=== PATIENT | male | born 1960 | race African-American/Black ===

== ENCOUNTER 2018-03-04 00:12 | Observation (INO) ==
[2018-03-04] MEDS ORDERED: ZALEPLON 5 MG CAPSULE PO PRN (02:01)
[2018-03-04] MEDS ORDERED: traMADol 50 MG TABLET PO PRN (02:41)
[2018-03-04] MEDS ORDERED: GLUCAGON 1 MG VIAL IM PRN (02:47)
[2018-03-04] MEDS ORDERED: DEXTROSE 50% 25 GM/50 ML VIAL IV PRN (02:47)
[2018-03-04 03:17] LABS: Albumin 3.7 G/DL (3.4-5.0); Bilirubin,Total 0.6 MG/DL (0.2-1.0); Calcium 9.7 MG/DL (8.5-10.1); Osmolality,Calculated 283.7 MOS/KG (273-304); Potassium 4.1 MMOL/L (3.5-5.1); Risk Ratio 4.54; Total Protein 7.4 G/DL (6.4-8.3); VLDL CHOLESTEROL 55.8 MG/DL
[2018-03-04] MEDS ORDERED: LOSARTAN/HCTZ 50-12.5 MG TABLET PO SCH (09:00)
[2018-03-04] MEDS ORDERED: ASPIRIN EC 325 MG TABLET PO SCH (09:00)
[2018-03-04] MEDS ORDERED: hydroCHLOROthiazide 12.5 MG CAPSULE PO SCH (09:00)
[2018-03-04] MEDS ORDERED: CARVEDILOL 12.5 MG TABLET PO SCH (09:00)
[2018-03-04] MEDS ORDERED: PANTOPRAZOLE 40 MG TABLET PO SCH (09:00)
[2018-03-04] MEDS ORDERED: LORATADINE 10 MG TABLET PO SCH (09:00)
[2018-03-04] MEDS: INSULIN REGULAR 100 UNIT/ML SUBCUT SCH ×2 (09:21→14:04)
[2018-03-04] MEDS ORDERED: DIAZEPAM 5 MG TABLET PO ONE (09:53)
[2018-03-04] MEDS ORDERED: POTASSIUM CHLORIDE RIDER 10 MEQ in PREMIX 1 EACH IV PRN (09:53)
[2018-03-04] MEDS ORDERED: MAGNESIUM SULF RIDER 2 GM in PREMIX 1 EACH IV PRN (09:53)
[2018-03-04] MEDS ORDERED: diphenhydrAMINE CAP 25 MG CAPSULE PO ONE (09:53)
[2018-03-04] MEDS ORDERED: SODIUM CHLORIDE 0.9% 1,000 ML IV SCH (10:00)
[2018-03-04 10:54] LABS: INR 0.9
[2018-03-04] MEDS ORDERED: LIDOCAINE 1%/EPI INJ 20 ML VIAL ONE (13:19)
[2018-03-04] MEDS ORDERED: fentaNYL 100 MCG/2 ML VIAL ONE (13:20)
[2018-03-04] MEDS ORDERED: MIDAZOLAM 2 MG/2 ML VIAL ONE (13:20)
[2018-03-04 17:43] VITALS: BP 114/81
[2018-03-04] MEDS ORDERED: ATORVASTATIN 40 MG TABLET PO SCH (21:00)
[2018-03-04] MEDS ORDERED: AMITRIPTYLINE 50 MG TABLET PO SCH (21:00)
[2018-03-04] MEDS ORDERED: traZODone 50 MG TABLET PO SCH (21:00)
== END 2018-03-04 19:05 | disposition home or self-care (01) ==
LOC: N.TELES → SUATTDRO 01:32
PROVIDERS: ADMIT Internal Medicine; ATTEND Internal Medicine
PROC: CLCCHCL (ICD-10-PCS; 2018-03-04 13:45)

== ENCOUNTER 2020-02-13 11:11 | Observation (INO) ==
[2020-02-13] MEDS ORDERED: MAGNESIUM SULF RIDER 2 GM in PREMIX 1 EACH IV PRN (12:08)
[2020-02-13] MEDS ORDERED: POTASSIUM CHLORIDE 20 MEQ TABLET PO PRN (12:08)
[2020-02-13] MEDS ORDERED: ZALEPLON 5 MG CAPSULE PO PRN (12:08)
[2020-02-13] MEDS ORDERED: MORPHINE 4 MG/1 ML VIAL IV PRN (12:08)
[2020-02-13] MEDS ORDERED: MAGNESIUM SULF RIDER 4 GM in PREMIX 1 EACH IV PRN (12:08)
[2020-02-13] MEDS ORDERED: ACETAMINOPHEN 325 MG TABLET PO PRN (12:08)
[2020-02-13] MEDS ORDERED: ONDANSETRON 4 MG/2 ML VIAL IV PRN (12:08)
[2020-02-13] MEDS ORDERED: GLUCAGON 1 MG VIAL IM PRN (12:16)
[2020-02-13] MEDS ORDERED: DEXTROSE 10% 250 ML BAG IV PRN (12:16)
[2020-02-13] MEDS ORDERED: NITROGLYCERIN SL 0.4 MG TABLET SL PRN (13:42)
[2020-02-13] MEDS ORDERED: ENOXAPARIN 120 MG/0.8 ML SYRINGE SUBCUT ONE (14:08)
[2020-02-13] MEDS ORDERED: ERGOCALCIFEROL 50,000 UNIT CAPSULE PO SCH (14:30)
[2020-02-13] MEDS: GABAPENTIN 300 MG CAPSULE PO SCH ×2 (14:47→21:42)
[2020-02-13] MEDS: ACETAMINOPHEN 325 MG TABLET PO SCH ×2 (14:47→21:43)
[2020-02-13] MEDS ORDERED: INSULIN REGULAR 100 UNIT/ML SUBCUT SCH (16:30)
[2020-02-13] MEDS: FUROSEMIDE 80 MG TABLET PO SCH (16:57)
[2020-02-13] MEDS ORDERED: INSULIN GLARGINE U U SUBCUT SCH (19:00)
[2020-02-13] MEDS ORDERED: ATORVASTATIN 40 MG TABLET PO SCH (21:00)
[2020-02-13] MEDS ORDERED: traZODone 50 MG TABLET PO SCH (21:00)
[2020-02-13] MEDS ORDERED: LORATADINE 10 MG TABLET PO SCH (21:00)
[2020-02-13] MEDS ORDERED: INSULIN GLARGINE 100 UNIT/ML SUBCUT SCH (21:00)
[2020-02-13] MEDS: TOPIRAMATE 25 MG TABLET PO SCH (21:43)
[2020-02-13] MEDS: carvediloL 25 MG TABLET PO SCH (21:44)
[2020-02-13] MEDS: hydrALAZINE 25 MG TABLET PO SCH (21:44)
[2020-02-13] MEDS: SACUBITRIL/VALSARTAN 49-51 MG TABLET PO SCH (21:44)
[2020-02-13] MEDS: LACOSAMIDE 50 MG TABLET PO SCH (21:45)
[2020-02-13 22:40] LABS: Apearance,Urine CLEAR (Clear); Bilirubin,Urine Negative (Negative); Blood, Urine Small mg/dL (Negative); Glucose,Urine (UA) Negative (Negative); Ketones,Urine Negative (Negative); Mucus,Urine Occasional /LPF (Occasional); Nitrite,Urine Negative (Negative); Protein,Urine Negative; RBC,Urine 1 /HPF (0-4); Squamous Epithelial Cell,Urine Occasional /HPF (0-10); Urine Color Straw (Yellow); Urine Specific Gravity 1.006 (1.001-1.035); Urine Urobilinogen < 2.0 EU/DL (0.2-1.0)
[2020-02-14 06:12] LABS: Eosinophils % 0.5 % (0.00-10.9); Hematocrit 38.4 VOL% (42.0-52.0); Hemoglobin 12.4 GM/DL (14.0-18.0); Immature Granulocytes % 0.5 %; Immature Granulocytes Absolute 0.02 #; Lymphocytes # 1.3 10*3/uL (1.4-4.0); Lymphocytes % 33.3 % (21.2-54.2); Mean Corpuscular HGB Conc 32.3 GM/DL (32-36); Mean Corpuscular Volume 82.2 FL (87-102); Mean Platelet Volume 9.9 FL (9.6-12.0); Monocytes % 10.7 % (1.7-12.7); Platelet Count 130 T/CUMM (130-400); Red Blood Count 4.67 MC/CUMM (3.8-5.5); Red Cell Distribution Width 14.6 % (9.3-17.3)
[2020-02-14 06:40] LABS: Calcium 9.3 MG/DL (8.5-10.1); Osmolality,Calculated 289.1 MOS/KG (273-304)
[2020-02-14 06:45] LABS: Risk Ratio 2.96; VLDL CHOLESTEROL 44.4 MG/DL
[2020-02-14] MEDS ORDERED: INSULIN LISPRO 100 UNIT/ML SUBCUT SCH (07:30)
[2020-02-14 07:41] VITALS: BP 155/77
[2020-02-14 08:21] LABS: Troponin I 0.019 NG/ML (0.00-0.045)
[2020-02-14] MEDS ORDERED: PANTOPRAZOLE 40 MG TABLET PO SCH (09:00)
[2020-02-14] MEDS ORDERED: FERROUS SULFATE 325 MG TABLET PO SCH (09:00)
[2020-02-14] MEDS ORDERED: EZETIMIBE 10 MG TABLET PO SCH (09:00)
[2020-02-14] MEDS ORDERED: ASPIRIN EC 81 MG TABLET PO SCH (09:00)
[2020-02-14] MEDS: LACOSAMIDE 50 MG TABLET PO SCH (09:43)
[2020-02-14] MEDS: carvediloL 25 MG TABLET PO SCH (09:43)
[2020-02-14] MEDS: ACETAMINOPHEN 325 MG TABLET PO SCH (09:43)
[2020-02-14] MEDS: FUROSEMIDE 80 MG TABLET PO SCH (09:43)
[2020-02-14] MEDS: GABAPENTIN 300 MG CAPSULE PO SCH (09:43)
[2020-02-14] MEDS: TOPIRAMATE 25 MG TABLET PO SCH (09:43)
[2020-02-14] MEDS: hydrALAZINE 25 MG TABLET PO SCH (09:43)
[2020-02-14] MEDS: SACUBITRIL/VALSARTAN 49-51 MG TABLET PO SCH (09:43)
[2020-02-20] MEDS ORDERED: NON-FORMULARY MEDICATION (Dulaglutide [Trulicity] 1.5 MG) SUBCUT SCH (09:00)
== END 2020-02-14 12:20 | disposition home or self-care (01) ==
LOC: N.TELES 13:02 → INTOOBSV 13:02
PROVIDERS: ADMIT Internal Medicine Cardiovascular Disease; ATTEND Internal Medicine Cardiovascular Disease

== ENCOUNTER 2020-12-26 14:50 | Inpatient (IN) ==
[2020-12-26 15:29] LABS: Basophils % 0.2 % (0.0-0.8); Eosinophils # 0.1 10*3/uL (0.0-0.87); Eosinophils % 1.1 % (0.00-10.9); Hematocrit 35.7 VOL% (42.0-52.0); Hemoglobin 11.5 GM/DL (14.0-18.0); Immature Granulocytes % 0.5 %; Immature Granulocytes Absolute 0.04 #; Lymphocytes % 11.8 % (21.2-54.2); Mean Corpuscular HGB Conc 32.2 GM/DL (32-36); Mean Corpuscular Volume 85.6 FL (87-102); Mean Platelet Volume 10.6 FL (9.6-12.0); Monocytes % 8.8 % (1.7-12.7); Neutrophils % 77.6 % (38.7-73.9); Platelet Count 165 T/CUMM (130-400); Red Blood Count 4.17 MC/CUMM (3.8-5.5); Red Cell Distribution Width 14.1 % (9.3-17.3); White Blood Count 8.3 T/CUMM (4-12)
[2020-12-26 15:50] LABS: Albumin 3.7 G/DL (3.4-5.0); Calcium 9.4 MG/DL (8.5-10.1); Osmolality,Calculated 295.4 MOS/KG (273-304); Potassium 4.5 MMOL/L (3.5-5.1); Total Protein 8.4 G/DL (5.0-7.5)
[2020-12-26 15:53] LABS: PT Patient Result 11.2 SECS (9.8-11.9)
[2020-12-26 16:47] LABS: Partial Thromboplastin Time 121.3 SECS (23.9-33.8)
[2020-12-26] MEDS ORDERED: DEXTROSE 50% 25 GM/50 ML VIAL IV PRN (17:41)
[2020-12-26] MEDS ORDERED: ONDANSETRON 4 MG/2 ML VIAL IV PRN (17:41)
[2020-12-26] MEDS ORDERED: GLUCAGON 1 MG VIAL IM PRN (17:41)
[2020-12-26] MEDS: INSULIN LISPRO 100 UNIT/ML SUBCUT SCH (21:13)
[2020-12-27 05:42] LABS: Basophils % 0.1 % (0.0-0.8); Eosinophils % 0.1 % (0.00-10.9); Hematocrit 33.5 VOL% (42.0-52.0); Hemoglobin 10.9 GM/DL (14.0-18.0); Immature Granulocytes % 0.7 %; Immature Granulocytes Absolute 0.07 #; Lymphocytes # 0.9 10*3/uL (1.4-4.0); Lymphocytes % 9.5 % (21.2-54.2); Mean Corpuscular HGB Conc 32.5 GM/DL (32-36); Mean Corpuscular Volume 84.4 FL (87-102); Mean Platelet Volume 10.5 FL (9.6-12.0); Monocytes % 7.7 % (1.7-12.7); Neutrophils % 81.9 % (38.7-73.9); Platelet Count 178 T/CUMM (130-400); Red Blood Count 3.97 MC/CUMM (3.8-5.5); Red Cell Distribution Width 14.6 % (9.3-17.3); White Blood Count 9.6 T/CUMM (4-12)
[2020-12-27 06:08] LABS: Band Neutrophils 6 % (0-10); Hypochromasia 1+; Lymphocytes 6 % (20-55); Segmented Neutrophils 79 % (50-85); Total Cells Counted 100
[2020-12-27 06:09] LABS: Microcytosis 1+; Platelet Estimate Adequate
[2020-12-27 06:12] LABS: Albumin 3.2 G/DL (3.4-5.0); Bilirubin,Direct 2.82 MG/DL (0.0-0.20); Bilirubin,Indirect 1.6 MG/DL (0.0-1.0); Bilirubin,Total 4.4 MG/DL (0.2-1.0); Osmolality,Calculated 294.8 MOS/KG (273-304); Total Protein 7.7 G/DL (5.0-7.5)
[2020-12-27] MEDS: INSULIN LISPRO 100 UNIT/ML SUBCUT SCH ×3 (09:47→16:15)
[2020-12-27] MEDS: ACETAMINOPHEN 650 MG SUPP RECTAL PRN (16:19)
[2020-12-28] MEDS: INSULIN LISPRO 100 UNIT/ML SUBCUT SCH ×5 (02:44→22:24)
[2020-12-28] MEDS: POLYETHYLENE GLYCOL POWDER 17 GM PACK PO SCH (08:01)
[2020-12-28 10:22] LABS: Hepatitis B Core IgM Quant < 0.05 Index; Hepatitis B Surface Ag Quant < 0.10 Index; Hepatitis B Surface Ag Result Non-Reactive (NonReactive); Hepatitis C Virus Ab Quant 0.08 Index; Hepatitis C Virus Ab Result Non-Reactive (NonReactive)
[2020-12-28] MEDS: LEVOFLOXACIN INJ 500 MG in PREMIX 1 EACH IV SCH (16:05)
[2020-12-28] MEDS ORDERED: HEPARIN 10,000 UNIT/10 ML VIAL IV SCH (16:30)
[2020-12-29 03:31] LABS: Basophils % 0.2 % (0.0-0.8); Eosinophils # 0.1 10*3/uL (0.0-0.87); Eosinophils % 0.7 % (0.00-10.9); Hemoglobin 9.8 GM/DL (14.0-18.0); Immature Granulocytes % 0.9 %; Immature Granulocytes Absolute 0.09 #; Lymphocytes # 0.9 10*3/uL (1.4-4.0); Lymphocytes % 9.2 % (21.2-54.2); Mean Corpuscular HGB Conc 32.7 GM/DL (32-36); Mean Corpuscular Volume 83.1 FL (87-102); Mean Platelet Volume 9.8 FL (9.6-12.0); Monocytes % 9.9 % (1.7-12.7); Neutrophils % 79.1 % (38.7-73.9); Platelet Count 165 T/CUMM (130-400); Red Blood Count 3.61 MC/CUMM (3.8-5.5); Red Cell Distribution Width 14.6 % (9.3-17.3); White Blood Count 9.5 T/CUMM (4-12)
[2020-12-29 03:59] LABS: Albumin 2.6 G/DL (3.4-5.0); Bilirubin,Total 1.8 MG/DL (0.2-1.0); Calcium 9.4 MG/DL (8.5-10.1); Osmolality,Calculated 290.2 MOS/KG (273-304); Potassium 4.4 MMOL/L (3.5-5.1); Total Protein 7.3 G/DL (5.0-7.5)
[2020-12-29 04:13] LABS: Eosinophils 1 % (0-10); Lymphocytes 8 % (20-55); Platelet Estimate Adequate; Segmented Neutrophils 83 % (50-85); Total Cells Counted 100
[2020-12-29 04:14] LABS: Hypochromasia 1+; Microcytosis 1+
[2020-12-29] MEDS: INSULIN LISPRO 100 UNIT/ML SUBCUT SCH ×4 (09:48→21:43)
[2020-12-29] MEDS: POLYETHYLENE GLYCOL POWDER 17 GM PACK PO SCH (09:49)
[2020-12-29] MEDS ORDERED: traMADol 50 MG TABLET PO PRN (10:27)
[2020-12-29] MEDS: ACETAMINOPHEN 650 MG SUPP RECTAL PRN (13:26)
[2020-12-30 05:47] LABS: Basophils % 0.2 % (0.0-0.8); Eosinophils # 0.1 10*3/uL (0.0-0.87); Eosinophils % 0.9 % (0.00-10.9); Hematocrit 31.4 VOL% (42.0-52.0); Hemoglobin 10.1 GM/DL (14.0-18.0); Immature Granulocytes % 0.6 %; Immature Granulocytes Absolute 0.05 #; Lymphocytes % 10.9 % (21.2-54.2); Mean Corpuscular HGB Conc 32.2 GM/DL (32-36); Mean Corpuscular Volume 84.2 FL (87-102); Mean Platelet Volume 9.9 FL (9.6-12.0); Monocytes % 12.3 % (1.7-12.7); Neutrophils % 75.1 % (38.7-73.9); Platelet Count 176 T/CUMM (130-400); Red Blood Count 3.73 MC/CUMM (3.8-5.5); Red Cell Distribution Width 14.7 % (9.3-17.3)
[2020-12-30 06:09] LABS: Albumin 2.6 G/DL (3.4-5.0); Bilirubin,Total 1.6 MG/DL (0.2-1.0); Calcium 9.2 MG/DL (8.5-10.1); Osmolality,Calculated 285.2 MOS/KG (273-304); Potassium 4.3 MMOL/L (3.5-5.1); Total Protein 7.9 G/DL (5.0-7.5)
[2020-12-30 06:13] LABS: Lymphocytes 11 % (20-55); Segmented Neutrophils 80 % (50-85); Total Cells Counted 100
[2020-12-30 06:14] LABS: Hypochromasia 2+; Platelet Estimate Normal
[2020-12-30] MEDS: INSULIN LISPRO 100 UNIT/ML SUBCUT SCH ×4 (07:18→23:06)
[2020-12-30] MEDS: POLYETHYLENE GLYCOL POWDER 17 GM PACK PO SCH (09:14)
[2020-12-30] MEDS: LEVOFLOXACIN INJ 500 MG in PREMIX 1 EACH IV SCH (14:08)
[2020-12-31 03:45] LABS: Basophils % 0.3 % (0.0-0.8); Eosinophils # 0.1 10*3/uL (0.0-0.87); Eosinophils % 0.9 % (0.00-10.9); Hematocrit 30.8 VOL% (42.0-52.0); Hemoglobin 10.2 GM/DL (14.0-18.0); Immature Granulocytes % 0.6 %; Immature Granulocytes Absolute 0.06 #; Lymphocytes % 9.7 % (21.2-54.2); Mean Corpuscular HGB Conc 33.1 GM/DL (32-36); Mean Corpuscular Volume 82.8 FL (87-102); Mean Platelet Volume 9.8 FL (9.6-12.0); Monocytes % 12.7 % (1.7-12.7); Neutrophils % 75.8 % (38.7-73.9); Platelet Count 181 T/CUMM (130-400); Red Blood Count 3.72 MC/CUMM (3.8-5.5); Red Cell Distribution Width 14.9 % (9.3-17.3); White Blood Count 10.4 T/CUMM (4-12)
[2020-12-31 04:17] LABS: Albumin 2.5 G/DL (3.4-5.0); Bilirubin,Total 1.3 MG/DL (0.2-1.0); Calcium 9.9 MG/DL (8.5-10.1); Osmolality,Calculated 292.4 MOS/KG (273-304); Potassium 4.4 MMOL/L (3.5-5.1); Total Protein 8.2 G/DL (5.0-7.5)
[2020-12-31] MEDS: INSULIN LISPRO 100 UNIT/ML SUBCUT SCH ×4 (08:12→21:39)
[2020-12-31] MEDS: CHOLECALCIFEROL 400 UNIT TABLET PO SCH (08:59)
[2020-12-31] MEDS: POLYETHYLENE GLYCOL POWDER 17 GM PACK PO SCH (08:59)
[2020-12-31] MEDS: DIVALPROEX 500 MG TABLET PO SCH (21:34)
[2021-01-01 06:24] LABS: Basophils % 0.3 % (0.0-0.8); Eosinophils # 0.1 10*3/uL (0.0-0.87); Eosinophils % 1.3 % (0.00-10.9); Hematocrit 30.6 VOL% (42.0-52.0); Hemoglobin 10.1 GM/DL (14.0-18.0); Immature Granulocytes % 1.1 %; Immature Granulocytes Absolute 0.11 #; Lymphocytes % 10.7 % (21.2-54.2); Mean Corpuscular Volume 83.2 FL (87-102); Mean Platelet Volume 9.8 FL (9.6-12.0); Monocytes % 13.1 % (1.7-12.7); Neutrophils % 73.5 % (38.7-73.9); Platelet Count 201 T/CUMM (130-400); Red Blood Count 3.68 MC/CUMM (3.8-5.5); Red Cell Distribution Width 15.3 % (9.3-17.3); White Blood Count 9.6 T/CUMM (4-12)
[2021-01-01 06:50] LABS: Albumin 2.5 G/DL (3.4-5.0); Bilirubin,Total 0.8 MG/DL (0.2-1.0); Calcium 9.7 MG/DL (8.5-10.1); Osmolality,Calculated 305.1 MOS/KG (273-304); Total Protein 8.3 G/DL (6.4-8.2)
[2021-01-01] MEDS: INSULIN LISPRO 100 UNIT/ML SUBCUT SCH ×4 (08:13→20:00)
[2021-01-01] MEDS: CHOLECALCIFEROL 400 UNIT TABLET PO SCH (09:04)
[2021-01-01] MEDS: DIVALPROEX 500 MG TABLET PO SCH ×2 (09:04→20:47)
[2021-01-01] MEDS: POLYETHYLENE GLYCOL POWDER 17 GM PACK PO SCH (09:04)
[2021-01-01] MEDS ORDERED: LEVOFLOXACIN 500 MG TABLET PO SCH (10:00)
[2021-01-01 20:04] VITALS: BP 97/64
== END 2021-01-01 21:00 | DRG 56 ==
LOC: EDUNIT# → EDBD → N.EDINP 14:50 → N.ED 14:50 → N.5E 18:12 → SUATTDRO 12-28 14:29
PROVIDERS: ADMIT Hospitalist; ATTEND Family Medicine

== ENCOUNTER 2021-10-13 14:17 | Observation (INO) ==
[2021-10-13 18:58] LABS: Albumin 3.9 G/DL (3.4-5.0); Bilirubin,Total 0.6 MG/DL (0.20-1.00); Calcium 9.1 MG/DL (8.5-10.1); Osmolality,Calculated 285.8 MOS/KG (273-304); Potassium 3.4 MMOL/L (3.5-5.1); Total Protein 8.6 G/DL (6.4-8.2)
[2021-10-13] MEDS ORDERED: HEPARIN LOCK FLUSH 500 UNIT/5 ML SYRINGE IV ONE (19:19)
[2021-10-13] MEDS ORDERED: MAGNESIUM SULF RIDER 2 GM/50 ML PREMIX IV PRN (19:31)
[2021-10-13] MEDS ORDERED: ONDANSETRON 4 MG/2 ML VIAL IV PRN (19:31)
[2021-10-13] MEDS ORDERED: MORPHINE 2 MG/1 ML SYRINGE IV PRN (19:31)
[2021-10-13] MEDS ORDERED: MAGNESIUM SULF RIDER 4 GM/100 ML PREMIX IV PRN (19:31)
[2021-10-13] MEDS ORDERED: ASPIRIN EC 325 MG TABLET PO SCH (19:33)
[2021-10-13 19:42] LABS: Basophils % 0.5 % (0.0-0.8); Eosinophils # 0.2 10*3/uL (0.0-0.87); Eosinophils % 2.3 % (0.00-10.9); Hematocrit 34.8 VOL% (42.0-52.0); Hemoglobin 11.7 GM/DL (14.0-18.0); Immature Granulocytes % 0.2 %; Immature Granulocytes Absolute 0.01 #; Lymphocytes # 2.2 10*3/uL (1.4-4.0); Lymphocytes % 32.7 % (21.2-54.2); Mean Corpuscular HGB Conc 33.6 GM/DL (32-36); Mean Corpuscular Volume 81.9 FL (87-102); Mean Platelet Volume 11.1 FL (9.6-12.0); Monocytes % 8.6 % (1.7-12.7); Neutrophils % 55.7 % (38.7-73.9); Platelet Count 116 T/CUMM (130-400); Red Blood Count 4.25 MC/CUMM (3.8-5.5); Red Cell Distribution Width 14.4 % (9.3-17.3); White Blood Count 6.6 T/CUMM (4-12)
[2021-10-13] MEDS ORDERED: ATORVASTATIN 20 MG TABLET PO SCH (21:00)
[2021-10-13] MEDS ORDERED: METOPROLOL TARTRATE 25 MG TABLET PO SCH (21:00)
[2021-10-13] MEDS ORDERED: ENOXAPARIN 120 MG/0.8 ML SYRINGE SUBCUT SCH (21:00)
[2021-10-13] MEDS: LACOSAMIDE 50 MG TABLET PO SCH (21:52)
[2021-10-13] MEDS: clonazePAM 0.5 MG TABLET PO SCH (21:53)
[2021-10-13] MEDS: GABAPENTIN 300 MG CAPSULE PO SCH (21:53)
[2021-10-14] MEDS ORDERED: carvediloL 12.5 MG TABLET PO SCH (09:00)
[2021-10-14] MEDS ORDERED: ASPIRIN EC 81 MG TABLET PO SCH (09:00)
[2021-10-14] MEDS ORDERED: PANTOPRAZOLE 40 MG TABLET PO SCH (09:00)
[2021-10-14] MEDS ORDERED: ASPIRIN CHEW 81 MG TABLET PO ONE (09:06)
[2021-10-14] MEDS: GABAPENTIN 300 MG CAPSULE PO SCH (09:15)
[2021-10-14] MEDS: clonazePAM 0.5 MG TABLET PO SCH (09:15)
[2021-10-14] MEDS: LACOSAMIDE 50 MG TABLET PO SCH (13:08)
[2021-10-14] MEDS ORDERED: POTASSIUM CHLORIDE 20 MEQ TABLET PO ONE (14:00)
[2021-10-14] MEDS ORDERED: MAGNESIUM SULF RIDER 2 GM/50 ML PREMIX IV ONE (14:00)
[2021-10-14 14:58] VITALS: BP 147/97
[2021-10-14] MEDS ORDERED: INSULIN GLARGINE 100 UNIT/ML SUBCUT SCH (21:00)
[2021-10-14] MEDS ORDERED: EZETIMIBE 10 MG TABLET PO SCH (21:00)
[2021-10-14] MEDS ORDERED: ATORVASTATIN 40 MG TABLET PO SCH (21:00)
== END 2021-10-14 14:33 | disposition home or self-care (01) ==
LOC: N.EDINP 14:17 → N.ED 14:17 → N.EDINP 10-14 14:45
PROVIDERS: ADMIT Internal Medicine Geriatric Medicine; ATTEND Internal Medicine Geriatric Medicine

== ENCOUNTER 2022-03-19 20:57 | Inpatient (IN) ==
[2022-03-19 21:16] LABS: Basophils % 0.3 % (0.0-0.8); Eosinophils # 0.2 10*3/uL (0.0-0.87); Hematocrit 30.3 VOL% (42.0-52.0); Hemoglobin 9.9 GM/DL (14.0-18.0); Immature Granulocytes % 0.3 %; Immature Granulocytes Absolute 0.02 #; Lymphocytes # 1.7 10*3/uL (1.4-4.0); Lymphocytes % 22.7 % (21.2-54.2); Mean Corpuscular HGB Conc 32.7 GM/DL (32-36); Mean Corpuscular Volume 83.9 FL (87-102); Monocytes # 0.8 10*3/uL (0.11-0.8); Monocytes % 10.5 % (1.7-12.7); Neutrophils % 64.2 % (38.7-73.9); Platelet Count 134 T/CUMM (130-400); Red Blood Count 3.61 MC/CUMM (3.8-5.5); Red Cell Distribution Width 15.1 % (9.3-17.3); White Blood Count 7.5 T/CUMM (4-12)
[2022-03-19 21:34] LABS: Albumin 3.3 G/DL (3.4-5.0); Bilirubin,Total 0.4 MG/DL (0.20-1.00); Calcium 9.4 MG/DL (8.5-10.1); Osmolality,Calculated 297.4 MOS/KG (273-304); Potassium 3.7 MMOL/L (3.5-5.1); Total Protein 6.9 G/DL (6.4-8.2)
[2022-03-19] MEDS ORDERED: ALUM/MAG/SIMETH/LIDO VISC 1:1 30 ML BOTTLE PO STA (21:38)
[2022-03-19] MEDS ORDERED: MORPHINE 2 MG/1 ML SYRINGE IV STA (21:38)
[2022-03-19] MEDS ORDERED: ONDANSETRON 4 MG/2 ML VIAL IV STA (21:38)
[2022-03-19] MEDS ORDERED: PANTOPRAZOLE 40 MG VIAL IV STA (21:38)
[2022-03-19] MEDS ORDERED: MAGNESIUM SULF RIDER 2 GM/50 ML PREMIX IV STA (22:27)
[2022-03-20] MEDS ORDERED: NITROGLYCERIN SL 0.4 MG TABLET SL PRN (06:12)
[2022-03-20] MEDS ORDERED: ACETAMINOPHEN 325 MG TABLET PO PRN (06:12)
[2022-03-20] MEDS ORDERED: ONDANSETRON 4 MG/2 ML VIAL IV PRN (06:12)
[2022-03-20] MEDS ORDERED: NON-FORMULARY MEDICATION (Omeprazole 20 MG capsule,delayed release(DR/EC)) PO SCH (06:30)
[2022-03-20] MEDS: PIPERACILLIN/TAZOBACTAM 3,375 MG in SODIUM CHLORIDE 0.9% 100 ML IV SCH ×2 (06:32→17:47)
[2022-03-20] MEDS ORDERED: INSULIN LISPRO INSULIN SUBCUT SCH (07:30)
[2022-03-20] MEDS ORDERED: [UNRECOGNIZED DRUG - OTHER] SUBCUT SCH (07:30)
[2022-03-20] MEDS ORDERED: GLUCAGON 1 MG VIAL IM PRN (08:54)
[2022-03-20] MEDS ORDERED: PANTOPRAZOLE 40 MG VIAL IV SCH (09:00)
[2022-03-20] MEDS ORDERED: DEXTROSE 10% 250 ML BAG IV PRN (10:54)
[2022-03-20] MEDS ORDERED: INDOCYANINE GREEN 25 MG VIAL IV ONE (12:00)
[2022-03-20] MEDS ORDERED: HEPARIN/NACL 0.9% 2 UNITS/ML 1,000 UNIT/500 ML BAG IV ONE (12:28)
[2022-03-20] MEDS ORDERED: LIDOCAINE 2% 5 ML VIAL ONE (12:38)
[2022-03-20] MEDS ORDERED: ETOMIDATE 40 MG/20 ML VIAL IV ONE (12:38)
[2022-03-20] MEDS ORDERED: fentaNYL 100 MCG/2 ML VIAL ONE (12:38)
[2022-03-20] MEDS ORDERED: ROCURONIUM 50 MG/5 ML VIAL IV ONE (12:38)
[2022-03-20] MEDS ORDERED: MIDAZOLAM 2 MG/2 ML VIAL ONE (12:39)
[2022-03-20] MEDS ORDERED: SEVOFLURANE 1 UNIT/15 MINUTE INH ONE ×2 (12:41→15:50)
[2022-03-20] MEDS ORDERED: SODIUM CHLORIDE 0.9% 250 ML IV SCH (13:00)
[2022-03-20] MEDS ORDERED: LIDOCAINE 1%/EPI INJ 20 ML VIAL ONE (13:20)
[2022-03-20] MEDS ORDERED: BUPIVACAINE MPF 0.25% 10 ML VIAL ONE (13:20)
[2022-03-20] MEDS ORDERED: ALBUTEROL 2.5 MG/3 ML NEB RESP TX ONE (13:21)
[2022-03-20] MEDS ORDERED: PHENYLEPHRINE DRIP 20 MG/250 ML PREMIX IV ONE (13:25)
[2022-03-20] MEDS ORDERED: TISSUE ADHESIVE 1 EACH APPLICATOR TOP ONE (14:18)
[2022-03-20] MEDS ORDERED: NEOSTIGMINE 10 MG/10 ML VIAL ONE (15:11)
[2022-03-20] MEDS ORDERED: GLYCOPYRROLATE 0.4 MG/2 ML VIAL ONE (15:11)
[2022-03-20] MEDS ORDERED: PHENYLEPHRINE 1 MG/10 ML SYRINGE IV ONE (15:50)
[2022-03-20] MEDS: MORPHINE 2 MG/1 ML SYRINGE IV PRN (16:24)
[2022-03-20] MEDS ORDERED: SODIUM CHLORIDE 0.9% 1,000 ML IV SCH (17:00)
[2022-03-20] MEDS: carvediloL 12.5 MG TABLET PO SCH ×2 (17:10→20:05)
[2022-03-20] MEDS: DOCUSATE SODIUM 100 MG CAPSULE PO SCH ×2 (17:10→20:06)
[2022-03-20] MEDS: hydrALAZINE 25 MG TABLET PO SCH ×2 (17:10→20:06)
[2022-03-20] MEDS: ASPIRIN EC 81 MG TABLET PO SCH (17:10)
[2022-03-20] MEDS: INSULIN LISPRO 100 UNIT/ML SUBCUT SCH ×3 (17:11→20:07)
[2022-03-20] MEDS: ISOSORBIDE MONONITRATE 30 MG TABLET PO SCH (17:11)
[2022-03-20] MEDS: (Sucroferric Oxyhydroxide [Velphoro] 500 mg Tablet,Chewable) PO SCH (17:11)
[2022-03-20] MEDS: MIRTAZAPINE 15 MG TABLET PO SCH (20:05)
[2022-03-20] MEDS: LACOSAMIDE 50 MG TABLET PO SCH (20:05)
[2022-03-20] MEDS: GABAPENTIN 300 MG CAPSULE PO SCH (20:05)
[2022-03-20] MEDS: LORATADINE 10 MG TABLET PO SCH (20:06)
[2022-03-20] MEDS: ATORVASTATIN 40 MG TABLET PO SCH (20:06)
[2022-03-21 03:35] LABS: Basophils % 0.1 % (0.0-0.8); Eosinophils # 0.1 10*3/uL (0.0-0.87); Eosinophils % 1.2 % (0.00-10.9); Hematocrit 33.1 VOL% (42.0-52.0); Hemoglobin 10.4 GM/DL (14.0-18.0); Immature Granulocytes % 0.7 %; Immature Granulocytes Absolute 0.06 #; Lymphocytes % 10.5 % (21.2-54.2); Mean Corpuscular HGB Conc 31.4 GM/DL (32-36); Mean Corpuscular Volume 87.1 FL (87-102); Mean Platelet Volume 9.4 FL (9.6-12.0); Monocytes # 0.8 10*3/uL (0.11-0.8); Monocytes % 8.5 % (1.7-12.7); Platelet Count 131 T/CUMM (130-400); Red Cell Distribution Width 15.3 % (9.3-17.3); White Blood Count 9.2 T/CUMM (4-12)
[2022-03-21 03:59] LABS: Albumin 3.2 G/DL (3.4-5.0); Bilirubin,Total 0.6 MG/DL (0.20-1.00); Calcium 9.7 MG/DL (8.5-10.1); Potassium 5.8 MMOL/L (3.5-5.1); Total Protein 7.5 G/DL (6.4-8.2)
[2022-03-21] MEDS: PIPERACILLIN/TAZOBACTAM 3,375 MG in SODIUM CHLORIDE 0.9% 100 ML IV SCH (05:50)
[2022-03-21] MEDS: INSULIN LISPRO 100 UNIT/ML SUBCUT SCH ×4 (07:55→20:21)
[2022-03-21] MEDS: DOCUSATE SODIUM 100 MG CAPSULE PO SCH ×2 (08:20→20:19)
[2022-03-21] MEDS: ISOSORBIDE MONONITRATE 30 MG TABLET PO SCH (08:20)
[2022-03-21] MEDS: MAGNESIUM OXIDE 400 MG TABLET PO SCH (08:20)
[2022-03-21] MEDS: GABAPENTIN 300 MG CAPSULE PO SCH ×2 (08:20→20:19)
[2022-03-21] MEDS: EZETIMIBE 10 MG TABLET PO SCH (08:20)
[2022-03-21] MEDS: MIRTAZAPINE 15 MG TABLET PO SCH ×2 (08:20→20:18)
[2022-03-21] MEDS: carvediloL 12.5 MG TABLET PO SCH ×2 (08:20→20:19)
[2022-03-21] MEDS: ASPIRIN EC 81 MG TABLET PO SCH (08:20)
[2022-03-21] MEDS: (Sucroferric Oxyhydroxide [Velphoro] 500 mg Tablet,Chewable) PO SCH (08:20)
[2022-03-21] MEDS: LACOSAMIDE 50 MG TABLET PO SCH ×2 (08:20→20:18)
[2022-03-21] MEDS: hydrALAZINE 25 MG TABLET PO SCH ×2 (08:20→20:20)
[2022-03-21] MEDS: MULTIVITAMIN (BEROCCA) TABLET PO SCH (08:20)
[2022-03-21] MEDS: PANTOPRAZOLE 40 MG TABLET PO SCH (08:20)
[2022-03-21] MEDS: SODIUM ZIRCONIUM CYCLOSILICATE 10 GM PACK PO SCH ×3 (09:05→20:21)
[2022-03-21] MEDS ORDERED: HEPARIN 10,000 UNIT/10 ML VIAL IV PRN (15:30)
[2022-03-21] MEDS: ATORVASTATIN 40 MG TABLET PO SCH (20:20)
[2022-03-21] MEDS: LORATADINE 10 MG TABLET PO SCH (20:20)
[2022-03-22 03:20] LABS: Basophils % 0.2 % (0.0-0.8); Eosinophils # 0.2 10*3/uL (0.0-0.87); Eosinophils % 3.1 % (0.00-10.9); Hematocrit 29.2 VOL% (42.0-52.0); Hemoglobin 9.4 GM/DL (14.0-18.0); Immature Granulocytes % 0.5 %; Immature Granulocytes Absolute 0.03 #; Lymphocytes # 1.4 10*3/uL (1.4-4.0); Lymphocytes % 21.5 % (21.2-54.2); Mean Corpuscular HGB Conc 32.2 GM/DL (32-36); Mean Corpuscular Volume 85.9 FL (87-102); Mean Platelet Volume 9.8 FL (9.6-12.0); Monocytes # 0.7 10*3/uL (0.11-0.8); Monocytes % 11.2 % (1.7-12.7); Neutrophils % 63.5 % (38.7-73.9); Platelet Count 129 T/CUMM (130-400); Red Cell Distribution Width 15.1 % (9.3-17.3); White Blood Count 6.5 T/CUMM (4-12)
[2022-03-22 03:37] LABS: Albumin 2.9 G/DL (3.4-5.0); Bilirubin,Direct 0.19 MG/DL (0.0-0.20); Bilirubin,Indirect 0.4 MG/DL (0.0-1.0); Bilirubin,Total 0.6 MG/DL (0.20-1.00); Total Protein 7.3 G/DL (6.4-8.2)
[2022-03-22 03:41] LABS: Calcium 9.4 MG/DL (8.5-10.1); Osmolality,Calculated 283.1 MOS/KG (273-304); Potassium 4.1 MMOL/L (3.5-5.1)
[2022-03-22] MEDS: PANTOPRAZOLE 40 MG TABLET PO SCH (08:26)
[2022-03-22] MEDS: MAGNESIUM OXIDE 400 MG TABLET PO SCH (08:26)
[2022-03-22] MEDS: GABAPENTIN 300 MG CAPSULE PO SCH ×2 (08:26→21:59)
[2022-03-22] MEDS: ASPIRIN EC 81 MG TABLET PO SCH (08:26)
[2022-03-22] MEDS: MULTIVITAMIN (BEROCCA) TABLET PO SCH (08:26)
[2022-03-22] MEDS: EZETIMIBE 10 MG TABLET PO SCH (08:26)
[2022-03-22] MEDS: LACOSAMIDE 50 MG TABLET PO SCH ×2 (08:26→21:59)
[2022-03-22] MEDS: MIRTAZAPINE 15 MG TABLET PO SCH ×2 (08:27→21:59)
[2022-03-22] MEDS: DOCUSATE SODIUM 100 MG CAPSULE PO SCH ×2 (08:27→21:59)
[2022-03-22] MEDS: ISOSORBIDE MONONITRATE 30 MG TABLET PO SCH (08:27)
[2022-03-22] MEDS: carvediloL 12.5 MG TABLET PO SCH ×2 (08:27→21:59)
[2022-03-22] MEDS: hydrALAZINE 25 MG TABLET PO SCH ×2 (08:27→21:59)
[2022-03-22] MEDS: (Sucroferric Oxyhydroxide [Velphoro] 500 mg Tablet,Chewable) PO SCH (08:28)
[2022-03-22] MEDS: INSULIN LISPRO 100 UNIT/ML SUBCUT SCH ×4 (10:51→21:57)
[2022-03-22] MEDS: SODIUM ZIRCONIUM CYCLOSILICATE 10 GM PACK PO SCH ×2 (10:54→17:21)
[2022-03-22] MEDS: LORATADINE 10 MG TABLET PO SCH (21:59)
[2022-03-22] MEDS: ATORVASTATIN 40 MG TABLET PO SCH (21:59)
[2022-03-23 07:35] VITALS: BP 133/75
[2022-03-23] MEDS: MAGNESIUM OXIDE 400 MG TABLET PO SCH (08:41)
[2022-03-23] MEDS: LACOSAMIDE 50 MG TABLET PO SCH (08:41)
[2022-03-23] MEDS: EZETIMIBE 10 MG TABLET PO SCH (08:41)
[2022-03-23] MEDS: INSULIN LISPRO 100 UNIT/ML SUBCUT SCH ×2 (08:41→15:58)
[2022-03-23] MEDS: MIRTAZAPINE 15 MG TABLET PO SCH (08:42)
[2022-03-23] MEDS: (Sucroferric Oxyhydroxide [Velphoro] 500 mg Tablet,Chewable) PO SCH (08:42)
[2022-03-23] MEDS: ASPIRIN EC 81 MG TABLET PO SCH (08:42)
[2022-03-23] MEDS: MULTIVITAMIN (BEROCCA) TABLET PO SCH (08:42)
[2022-03-23] MEDS: carvediloL 12.5 MG TABLET PO SCH (08:42)
[2022-03-23] MEDS: DOCUSATE SODIUM 100 MG CAPSULE PO SCH (08:42)
[2022-03-23] MEDS: ISOSORBIDE MONONITRATE 30 MG TABLET PO SCH (08:42)
[2022-03-23] MEDS: GABAPENTIN 300 MG CAPSULE PO SCH (08:42)
[2022-03-23] MEDS: hydrALAZINE 25 MG TABLET PO SCH (08:42)
[2022-03-23] MEDS: PANTOPRAZOLE 40 MG TABLET PO SCH (08:42)
[2022-03-23] MEDS ORDERED: MAGNESIUM HYDROXIDE SUSP 30 ML UDCUP PO PRN (09:27)
[2022-03-23] MEDS ORDERED: BISACODYL 10 MG SUPP RECTAL ONE (10:13)
[2022-03-23] MEDS: MORPHINE 2 MG/1 ML SYRINGE IV PRN (15:50)
[2022-03-24] MEDS ORDERED: ERGOCALCIFEROL 50,000 UNIT CAPSULE PO SCH (09:00)
== END 2022-03-23 17:35 | disposition home or self-care (01) | DRG 417 ==
LOC: EDUNIT# → EDBD → N.ED 20:57 → N.EDINP 03-20 00:16 → N.3E 03-20 12:30 → N.ICU 03-20 15:36
PROVIDERS: ADMIT Surgery; ATTEND Surgery

== ENCOUNTER 2022-07-26 20:11 | Observation (INO) ==
[2022-07-26] MEDS ORDERED: ONDANSETRON 4 MG/2 ML VIAL IV PRN (21:09)
[2022-07-26] MEDS ORDERED: ACETAMINOPHEN 325 MG TABLET PO PRN (21:09)
[2022-07-27 05:07] LABS: Basophils % 0.5 % (0.0-0.8); Eosinophils # 0.1 10*3/uL (0.0-0.87); Eosinophils % 2.5 % (0.00-10.9); Hematocrit 29.2 VOL% (42.0-52.0); Hemoglobin 9.8 GM/DL (14.0-18.0); Immature Granulocytes % 0.2 %; Immature Granulocytes Absolute 0.01 #; Lymphocytes # 1.5 10*3/uL (1.4-4.0); Lymphocytes % 37.5 % (21.2-54.2); Mean Corpuscular HGB Conc 33.6 GM/DL (32-36); Mean Corpuscular Volume 80.4 FL (87-102); Mean Platelet Volume 10.4 FL (9.6-12.0); Monocytes # 0.4 10*3/uL (0.11-0.8); Neutrophils % 49.3 % (38.7-73.9); Red Blood Count 3.63 MC/CUMM (3.8-5.5); Red Cell Distribution Width 13.6 % (9.3-17.3); White Blood Count 4.1 T/CUMM (4-12)
[2022-07-27 05:08] LABS: Platelet Count 82 T/CUMM (130-400)
[2022-07-27 05:33] LABS: Albumin 3.5 G/DL (3.4-5.0); Bilirubin,Total 0.5 MG/DL (0.20-1.00); Calcium 10.1 MG/DL (8.5-10.1); Osmolality,Calculated 291.5 MOS/KG (273-304); Potassium 3.5 MMOL/L (3.5-5.1); Total Protein 7.5 G/DL (6.4-8.2)
[2022-07-27 05:48] LABS: Hypochromia Slight; Microcytosis Slight
[2022-07-27 05:49] LABS: Platelet Estimate Decreased
[2022-07-27] MEDS: PANTOPRAZOLE 40 MG TABLET PO SCH (09:46)
[2022-07-27] MEDS ORDERED: NITROGLYCERIN SL 0.4 MG TABLET SL PRN (10:48)
[2022-07-27] MEDS ORDERED: DOCUSATE SODIUM 100 MG CAPSULE PO PRN (10:49)
[2022-07-27] MEDS: INSULIN LISPRO 100 UNIT/ML SUBCUT SCH ×2 (12:09→16:55)
[2022-07-27] MEDS ORDERED: ATORVASTATIN 40 MG TABLET PO SCH (21:00)
[2022-07-27] MEDS ORDERED: INSULIN GLARGINE 100 UNIT/ML SUBCUT SCH (21:00)
[2022-07-27] MEDS: GABAPENTIN 300 MG CAPSULE PO SCH (22:32)
[2022-07-27] MEDS: MIRTAZAPINE 15 MG TABLET PO SCH (22:32)
[2022-07-27] MEDS: carvediloL 12.5 MG TABLET PO SCH (22:32)
[2022-07-27] MEDS: hydrALAZINE 25 MG TABLET PO SCH (22:32)
[2022-07-27] MEDS: LACOSAMIDE 50 MG TABLET PO SCH (22:33)
[2022-07-28] MEDS ORDERED: ASPIRIN EC 81 MG TABLET PO SCH (09:00)
[2022-07-28] MEDS ORDERED: MAGNESIUM OXIDE 400 MG TABLET PO SCH (09:00)
[2022-07-28] MEDS ORDERED: EZETIMIBE 10 MG TABLET PO SCH (09:00)
[2022-07-28] MEDS ORDERED: MULTIVITAMIN (BEROCCA) TABLET PO SCH (09:00)
[2022-07-28] MEDS ORDERED: ISOSORBIDE MONONITRATE 30 MG TABLET PO SCH (09:00)
[2022-07-28] MEDS ORDERED: VELPHORO PO SCH (09:00)
[2022-07-28] MEDS: INSULIN LISPRO 100 UNIT/ML SUBCUT SCH (10:44)
[2022-07-28] MEDS: hydrALAZINE 25 MG TABLET PO SCH (10:44)
[2022-07-28] MEDS: GABAPENTIN 300 MG CAPSULE PO SCH (10:45)
[2022-07-28] MEDS: carvediloL 12.5 MG TABLET PO SCH (10:45)
[2022-07-28] MEDS: MIRTAZAPINE 15 MG TABLET PO SCH (11:10)
[2022-07-28] MEDS: PANTOPRAZOLE 40 MG TABLET PO SCH (11:11)
[2022-07-28] MEDS: LACOSAMIDE 50 MG TABLET PO SCH (11:11)
[2022-07-28 13:05] VITALS: BP 133/83
== END 2022-07-28 15:38 | disposition home or self-care (01) ==
LOC: EDUNIT# → N.ED 20:11 → N.EDINP 20:11 → N.2W 23:23
PROVIDERS: ADMIT Surgery; ATTEND Surgery